=== PATIENT | female | born 2000 | race Caucasian/White ===

== ENCOUNTER 2023-11-29 07:38 | Inpatient (IN) ==
[2023-11-29] MEDS ORDERED: LIDOCAINE 1% LOCAL 20 ML VIAL INFIL PRN (07:55)
[2023-11-29] MEDS: LACTATED RINGER'S 1,000 ML IV PRN (07:56)
[2023-11-29 08:37] LABS: Hematocrit (blood only) 31.1 % (37.0-47.0); Hemoglobin 9.7 g/dl (12.0-16.0); Mean Corpuscular Hemoglobin 22.6 pg (25.0-34.0); Mean Corpuscular Hgb Conc 31.2 g/dL (32.0-36.0); Mean Corpuscular Volume 72.3 fL (80.0-100.0); Mean Platelet Volume 11.1 fL (9.4-12.4); Nucleated RBC # (auto) 0.02 K/uL (0.00-0.12); Nucleated RBC % (auto) 0.2 %; Platelet Count 230 K/uL (130-400); RDW Coefficient of Variation 16.2 % (11.5-14.5); White Blood Count 10.69 K/ul (4.8-10.8)
--- NOTE | 2023-11-29 08:51 | History & Physical Report ---
Date of Service November 29, 2023 Assessment & Plan (1) Encounter for induction of labor: Plan 23 y/o female currently at 40w 3d with an LACY 11/26/23 as determined by LMP, who is here for IOL. Nolasco bulb Pitocin AROM as indicated Epidural prn Monitor heart tracing, category 1 Admission and Anticipated Discharge Date Admission Date: November 29, 2023 History of Present Illness Primary Care Provider: NO PCP 23 y/o female currently at 40w 3d with an LACY 11/26/23 as determined by LMP, who is here for IOL. complicated by: GDM - declines GDM testing at 28 weeks--passed diet test at 16 weeks *Begin monthly Growth US's @24wks Had regular appointments with OB denies Contractions + movement denies Fluid loss denies Vaginal bleeding External FHT and external uterine monitors used: Category 1 tracing OB Labs: Blood Type B Positive 04/16/23 Antibody Screen NEGATIVE 04/16/23 Hemoglobin 11.6 g/dl (12.0-16.0) L 09/03/23 Hematocrit 34.8 % (37.0-47.0) L 09/03/23 Mean Corpuscular Volume 84.6 fL (80.0-100.0) 04/16/23 Platelet Count 251 K/uL (130-400) 04/16/23 Rubella IgG Antibody Immune (Immune) 04/16/23 Rapid Plasma Reagin Nonreactive (Nonreactive) 04/16/23 Hepatitis B Surface Antigen. NON-REACTIVE (NON-REACTIVE) 04/16/23 Hepatitis C Antibody (EIA) NON-REACTIVE (NON-REACTIVE) 04/16/23 HIV (1&2) Ag and Ab Confirmation NON-REACTIVE (NON-REACTIVE) 04/16/23 Maternal Serum Alpha Fetoprotein 50.0 ng/mL 06/25/23 OB Optional Labs: Chlamydia trachomatis RNA Not Detected (NotDetected) 11/02/23 Neisseria gonorrhoeae RNA Not Detected (NotDetected) 11/02/23 Alpha Fetoprotein Triple Screen SEE NOTE 06/25/23 Labs Reviewed: Declines carrier screening--mln cfdna-low risk--mln passed 16 week food 2 hr declined testing at 28weeks. Allergies Allergy/AdvReac Type Severity Reaction Status Date / Time No Known Allergies Allergy Verified 04/10/24 14:24 Home Medications Medication Instructions Recorded Confirmed Type PNV no.[id number] PO 04/09/23 11/28/23 History [ Gummies(zinc chelate)] pyridoxine (vitamin B6) PO 04/09/23 11/28/23 History Patient History Surgical History (Updated 04/09/23 @ 09:59 by Amalia Hull) S/P wisdom tooth extraction Family History (Updated 04/09/23 @ 09:53 by Amalia Hull) Father Myocardial infarction Uncle Colorectal cancer Social History (Updated 04/09/23 @ 09:54 by Amalia Hull) Smoking Status: Never smoker Second Hand Exposure: Yes (Vaping); Do You Dip or Chew Tobacco: No; Hx Alcohol Use: No Hx Substance Use: No Preferred Language: [place]guill[place] Communication Ability: Effective Archivist Political History Required: No Beliefs That Will Affect Care: None marital status: Single marital status details: Gil (22) [phone] Current Living Situation: Significant Other Current Living Situation Comment: Lives with boyfriend and 2 dogs current occupational status: employed current occupation: Daycare Other Information That Helps Us Care for You: No Feels Safe at Home: Yes Safety Concerns: Feels Safe At This Time Assistive Devices: None OB History [employer] History last pap 03/05/[address] [facility] avery Review of Systems denies chest pain or SOB denies fever/chills denies COOLEY/changes in vision denies dysuria denies LE pain Physical Exam Physical Exam: General: Alert and oriented. No acute distress Cardiac: Regular rate and rhythm, no murmurs appreciated Respiratory: Lungs clear to auscultation bilaterally, No increased work of b reathing Abdominal: Soft, non-tender, non-distended. Bowel sounds present. Gravid uterus. Extremities: No lower extremity edema, calves non-tender bilaterally FHT: Category 1, baseline rate 150, moderate variability, infrequent contractions Pelvic: EFW 6-7 per attending Genitourinary: OB Exam Abdomen: + vertex and + estimated weight (6-7 pounds); no regular contractions Manual OB Exam: + cervical dilation (closed), + cervical effacement 50% (soft anterior) and + station -2 OB Exam Monitor Tracing: + external FHT monitor used, + external uterine monitor used, + category I and + normal FHT variability cervical balloon placed under direct visualization. 40 cc of sterile water instilled into the balloon. the catheter was then placed on gentle traction adn secured to her left thigh. patient tolerated procedure well. Results & Data Vital Signs (Past 12 Hours) Vital Signs Temp Pulse Resp BP 11/29/23 07:51 36.9 C 112 H 16 120/81 11/29/23 07:42 112 H 120/81 Resident Activity Tracking Resident Involvement: Resident Care Provided Care Provided: OB Delivery
[2023-11-29] MEDS: OXYTOCIN 30 UNITS/NSS 30 UNITS/500 ML BAG IV PRN ×2 (09:28→23:15)
[2023-11-29] MEDS ORDERED: BUTORPHANOL TARTRATE 2 MG/ML VIAL IV PRN (09:33)
[2023-11-29] MEDS ORDERED: NALOXONE HCL 1 MG in SODIUM CHLORIDE 0.9% 1,000 ML IV PRN (16:33)
[2023-11-29] MEDS ORDERED: ROPIVACAINE 0.5% PF 5 MG/ML 20 ML VIAL EPI PRN (16:33)
[2023-11-29] MEDS ORDERED: ePHEDrine sulfate 50 MG/ML AMP IV PRN (16:33)
[2023-11-29] MEDS ORDERED: ONDANSETRON INJ 2 MG/ML 2 ML VIAL IV PRN (16:33)
[2023-11-29] MEDS ORDERED: LIDOCAINE 2% MPF LOCAL 5 ML VIAL EPI PRN (16:33)
[2023-11-29] MEDS ORDERED: diphenhydrAMINE 50 MG/ML VIAL IV PRN (16:33)
[2023-11-29] MEDS ORDERED: BUPIVACAINE 0.25% PF 30 ML VIAL EPI PRN (16:33)
[2023-11-29] MEDS ORDERED: NALBUPHINE HCL 5 MG in SYRINGE 0 ML IV PRN (16:33)
[2023-11-29] MEDS ORDERED: fentaNYL citrate PF 100 MCG/2 ML VIAL EPI PRN (16:33)
[2023-11-29] MEDS ORDERED: SODIUM CHLORIDE 0.9% PF INJ 10 ML VIAL EPI PRN (16:33)
[2023-11-29] MEDS ORDERED: NALOXONE HCL 0.4 MG/1 ML VIAL/CARP IV PRN (16:33)
--- NOTE | 2023-11-29 16:33 | Anesthesiology Consultation ---
Date of Service November 29, 2023 Assessment & Plan ASA ASA2 Proposed Anesthesia Anesthesia Type: Labor Epidural Risk / Benefits Reviewed With: PT / POA / Parent / Guardian, Accepts Plan and Informed Consent Obtained History Height/Weight Height: 5 ft Weight: 75.296 kg Allergies Allergy/AdvReac Type Severity Reaction Status Date / Time No Known Allergies Allergy Verified 11/28/23 14:24 Medications Home Medications Medication Instructions Recorded Confirmed Last Taken PNV no.[id number] PO 04/09/23 11/28/23 11/27/23 23:00 [ Gummies(zinc chelate)] pyridoxine (vitamin B6) PO 04/09/23 11/28/23 11/28/23 23:00 Active Medications Generic Name Dose Route Start Last Admin Trade Name Freq PRN Reason Stop Dose Admin Oxytocin 30 units in 500 mls @ 20 mls/hr 11/29/23 07:55 11/29/23 14:40 Pitocin 30 Units/Nss IV 12/01/23 07:54 1.2 units/hr .Q24H PRN 20 mls/hr Labor Induction/Augmentation Titration Protocol 1.2 UNITS/HR Lactated Ringer's 1,000 mls @ 125 mls/hr 11/29/23 07:55 11/29/23 15:09 Lr IV 12/01/23 07:54 125 mls/hr .Q8H PRN Administration L&D Protocol Protocol Exercise / Class Metabolic Activity II 4-5 Yardwork/Stairs/Walk up hill Past Family History Family History Father Myocardial infarction Uncle Colorectal cancer Past Surgical History Surgical History S/P wisdom tooth extraction Past Anesthesia History No Hx of Anesthesia Complications and No Family Hx of Anesthesia Complications History of PONV No Hx of PONV and No Hx of Motion Sickness Social History Smoking Status: Never smoker Do You Dip or Chew Tobacco: No Hx Alcohol Use: No Hx Substance Use: No substance use type: does not use Review of Systems denies fever/cough/ colds/ chest pain/ SOB/ TR denies TR Physical Exam Vital Signs Last Vital Signs Temp 36.9 C 11/29/23 07:51 Pulse 103 H 11/29/23 17:03 Resp 16 11/29/23 07:51 BP 115/56 L 11/29/23 17:03 Pulse Ox 99 11/29/23 17:00 ENMT Mouth: no TMJ abnormality and no dentition abnormality Thyromental Distance: > or= 3.5 Finger Breadths Mallampati Class: II Neck neck extension not limited Respiratory normal respiratory effort; no respiratory distress Auscultation: lungs clear to auscultation bilaterally Cardiovascular Rate/Rhythm: regular rate and regular rhythm Neurologic moves all extremities Psychiatric Orientation: alert and oriented x 3 Testing Laboratory Results 11/29/23 08:06
[2023-11-29] MEDS: fentANYL 2 MCG/ML BUPIVacaine 0.125%-NSS 100ML BAG ONE (16:49)
[2023-11-29] MEDS: fentaNYL citrate PF 100 MCG/2 ML VIAL ONE (16:55)
[2023-11-29] MEDS: LIDOCAINE 2%/EPINEPHRINE 1:200,000 20 ML PF ONE (16:56)
[2023-11-29] MEDS: BUPIVACAINE 0.25% PF 30 ML VIAL ONE (16:56)
[2023-11-29] MEDS ORDERED: NURSING L&D Epidural Breakthrough Pain Update ONE (17:15)
[2023-11-29] MEDS: SODIUM CHLORIDE 0.9% PF INJ 10 ML VIAL ONE (17:22)
[2023-11-29] MEDS: ePHEDrine sulfate 50 MG/ML AMP ONE (17:22)
--- NOTE | 2023-11-29 17:46 | Anesthesia Procedure Note ---
Date of Service November 29, 2023 Anesthesia Epidural Re-Dose Vital Signs Temp Pulse Resp BP Pulse Ox 36.9 C 104 H 16 111/61 97 11/29/23 07:51 11/29/23 17:40 11/29/23 07:51 11/29/23 17:33 11/29/23 17:40 Notes Pain Intensity: 5 Dilatation (cm): 5.0 Called by nursing to evaluate epidural as the patient is having increased pain. The epidural was re-dosed with the following medications (all medications via epidural route) after negative aspiration of the epidural catheter for CSF/HEME. 2ml 2% lidocaine with epi, 3mL ropivacaine 0.5% and l via epidural After Epidural Re-Dose Mental Status: alert / awake / arousable Pain: improving with treatment Airway Patency, RR, SpO2: stable & adequate BP & HR: stable & adequate
[2023-11-29] MEDS ORDERED: LIDOCAINE 2%/EPINEPHRINE 1:200,000 20 ML PF ONE (17:49)
[2023-11-29] MEDS ORDERED: ROPIVACAINE 0.5% 5 MG/ML 30 ML VIAL ONE (17:49)
[2023-11-29] MEDS: fentaNYL citrate PF 100 MCG/2 ML VIAL EPI STA (18:43)
--- NOTE | 2023-11-29 19:02 | Communication Note ---
Date of Service: November 29, 2023 pt was numb on right side but not on left. decision made to redo epidural. first epidural removed with tip intact. i identified interspace l3-l4. sterile prep/drape/mask/gloves. 2% lido infiltrated. 17 gauge touey advanced to radha with air at 6cm. easy catheter thread. 4 ml 2% lido with epi test dose. negative IV/IT. catheter secured at 11cm. pt bolused with 4 mL of 0.5% ropivicaine and 100 mcg of fentanyl. pt vss and pain greatly improved.
[2023-11-29] MEDS: LIDOCAINE 2%/EPINEPHRINE 1:200,000 20 ML PF EPI STA (19:33)
[2023-11-29] MEDS: SODIUM CHLORIDE 0.9% PF INJ 10 ML VIAL EPI STA (19:33)
[2023-11-29] MEDS: BUPIVACAINE 0.25% PF 30 ML VIAL EPI STA (19:33)
[2023-11-29] MEDS: fentANYL 2 MCG/ML BUPIVacaine 0.125%-NSS 100ML BAG EPI PRN (22:10)
[2023-11-29] MEDS ORDERED: HYDROCORTISONE ACETATE 25 MG SUPP PR PRN (23:46)
[2023-11-29] MEDS ORDERED: bisacodyL 10 MG SUPP PR PRN (23:46)
[2023-11-29] MEDS ORDERED: ACETAMINOPHEN 325 MG TAB PO PRN (23:46)
[2023-11-29] MEDS ORDERED: OXYTOCIN 30 UNITS/NSS 30 UNITS/500 ML BAG IV PRN (23:46)
[2023-11-29] MEDS ORDERED: oxyCODONE/ACETAMINOPHEN 5mg/325mg TAB PO PRN (23:46)
--- NOTE | 2023-11-29 23:52 | Delivery Summary ---
Vaginal Delivery Summary Date of Service November 29, 2023 Vaginal Delivery Summary and 2nd Degree LAC Patient is a 23-year-old 1 P0 female EDC of 11/26/2023 who presented for induction of labor because of postterm . A cervical balloon and Pitocin induction were begun on the morning of 11/28. After the balloon was expelled, she received epidural analgesia which initially was not effective but after redoing the epidural she had excellent relief. Membranes were ruptured for clear fluid. She progressed to full dilation and pushed effectively over intact perineum for delivery of a viable female infant. After the head was delivered with maternal effort, rest the infant delivered easily. The posterior arm delivered prior to the rest of the body. She was placed on the mother's abdomen for further attention and drying. She was vigorous crying and moving all 4 limbs. After 1 minute, the cord was clamped and cut. After cord blood was obtained, the placenta was expressed intact with a three-vessel cord. Fundal massage and dilute Pitocin were used to control bleeding. A second-degree perineal laceration was repaired with 3-0 chromic in the usual fashion. Her bladder was emptied after delivery using sterile technique for 450 cc of urine. QBL was 737 cc. Mother and infant were doing well after delivery. [facility] Vaginal Delivery Charge Delivery Type Details: and 2nd Degree LAC
[2023-11-30] MEDS: DIPHTHER/TETAN/PERTUS Vaccine (Tdap, Adol/Adult) 0.5mL IM ONE (00:13)
[2023-11-30] MEDS: BENZOCAINE 20% SPRY 85 APPLN/85 GM CAN EXT PRN (02:23)
--- NOTE | 2023-11-30 06:37 | Obstetrical Progress Note ---
Date of Service <Anatoliy Alvarado DO - Last Filed: 11/30/23 07:28> November 30, 2023 Assessment & Plan <Anatoliy Alvarado DO - Last Filed: 11/30/23 07:28> (1) Encounter for assessment: visit type: exam and care immediately after delivery Qualified Code(s): Z39.0 - Encounter for care and examination of mother immediately after delivery Plan 23 y/o PPD#1: Eating well, ambulation improving, monitor for spontaneous urinary output, straight cath prn, consider Nolasco placement if requiring repeated straight cath Vitals reviewed, significant for mild tachycardia, overnight HRmax 120, consistent with blood loss anemia AM Hgb 7.8, pt asymptomatic, will start iron supplementation Pain well controlled without analgesics Routine post care - OOB, ambulation, diet progression as tolerated Will have 6 week follow up with Dr. Ariza <Rupinder Leal MD, FACOG - Last Filed: 11/30/23 08:27> (1) Encounter for assessment: Subjective <Anatoliy Alvarado DO - Last Filed: 11/30/23 07:28> Ambulation: limited ambulation (notes some residual LE numbness) Voiding: voiding difficulty (was only able to void 100mL spontaneously with subsequent straight cath significant for 1400mL) Diet Tolerance:: regular diet Lochia:: Small Feeding Type:: bottle feeding Pain well controlled without analgesics Review of Systems -Denies fever or chills -Denies dyspnea, chest pain, or palpitations -Denies dysuria -Endorses mild COOLEY but denies associated changes in vision Physical Exam <Anatoliy Alvarado DO - Last Filed: 11/30/23 07:28> General: Alert and oriented. No acute distress Cardiac: Regular rate and rhythm, no murmurs appreciated Respiratory: Lungs clear to auscultation bilaterally, No increased work of breathing Abdominal: Soft, non-tender, non-distended. Bowel sounds present. Uterus: Uterine fundus firm, palpable below umbilicus Extremities: No lower extremity edema, calves non-tender bilaterally Results & Data <Anatoliy Alvarado DO - Last Filed: 11/30/23 07:28> Vital Signs (Past 12 Hours) Vital Signs Temp Pulse Pulse Resp BP BP Pulse Ox 11/30/23 03:10 37.1 C 111 H 18 114/61 100 11/30/23 03:10 11/30/23 01:27 115 H 112/73 11/30/23 01:12 108 H 106/59 L 11/30/23 00:57 118 H 112/64 11/30/23 00:55 18 11/30/23 00:42 120 H 121/66 11/30/23 00:27 111 H 111/57 L 11/30/23 00:25 18 11/30/23 00:12 109 H 112/59 L 11/30/23 00:10 18 11/29/23 23:57 113 H 121/62 11/29/23 23:55 113 H 18 121/62 11/29/23 23:42 122 H 120/74 11/29/23 23:40 18 11/29/23 23:28 109 H 107/69 11/29/23 23:25 18 11/29/23 23:16 127 H 183/65 H 11/29/23 23:05 128 H 100 11/29/23 23:00 149 H 98 11/29/23 22:55 146 H 20 98 11/29/23 22:54 138 H 81 L 11/29/23 22:49 142 H 91 11/29/23 22:44 143 H 67 L 11/29/23 22:43 37.4 C 11/29/23 22:42 136 H 86 L 11/29/23 22:39 121 H 83 L 11/29/23 22:37 87 82 L 11/29/23 22:34 85 96 11/29/23 22:30 18 11/29/23 22:30 18 11/29/23 22:29 90 115/58 L 98 11/29/23 22:24 97 11/29/23 22:24 85 11/29/23 22:24 85 88 L 11/29/23 22:19 82 100 11/29/23 22:15 86 106/55 L 11/29/23 22:14 106 H 80 L 11/29/23 22:12 104 H 81 L 11/29/23 22:09 105 H 88 L 11/29/23 22:07 105 H 93 11/29/23 22:04 102 H 100 11/29/23 22:00 103 H 18 114/59 L 11/29/23 21:59 96 H 100 11/29/23 21:55 90 93 11/29/23 21:54 99 H 97 11/29/23 21:50 88 93 11/29/23 21:49 91 H 94 11/29/23 21:45 95 H 111/60 11/29/23 21:44 88 97 11/29/23 21:43 86 93 11/29/23 21:39 94 H 96 11/29/23 21:38 97 H 93 11/29/23 21:34 93 H 98 11/29/23 21:30 89 18 109/58 L 91 11/29/23 21:29 95 H 98 11/29/23 21:24 85 94 11/29/23 21:23 88 93 11/29/23 21:19 83 93 11/29/23 21:17 105 H 90 11/29/23 21:14 94 H 103/58 L 98 11/29/23 21:12 96 H 92 11/29/23 21:09 99 H 99 11/29/23 21:06 102 H 93 11/29/23 21:05 18 11/29/23 21:05 37.5 C 18 11/29/23 21:04 99 H 89 L 11/29/23 21:01 115 H 90 11/29/23 20:59 107 H 97/52 L 100 11/29/23 20:54 108 H 100 11/29/23 20:52 99 H 88 L 11/29/23 20:49 109 H 99 11/29/23 20:46 103 H 101/58 L 11/29/23 20:44 98 H 97 11/29/23 20:39 102 H 100 11/29/23 20:34 103 H 100 11/29/23 20:30 108 H 111/53 L 11/29/23 20:29 109 H 81 L 11/29/23 20:24 97 H 97 11/29/23 20:19 91 H 98 11/29/23 20:15 100 H 112/67 11/29/23 20:14 92 H 99 11/29/23 20:09 95 H 98 11/29/23 20:04 100 H 94 11/29/23 20:00 102 H 121/69 11/29/23 19:59 107 H 96 11/29/23 19:55 96 H 91 11/29/23 19:54 97 H 100 11/29/23 19:49 96 H 99 11/29/23 19:47 113 H 90 11/29/23 19:45 96 H 118/68 11/29/23 19:44 93 H 99 11/29/23 19:39 89 98 11/29/23 19:35 103 H 93 11/29/23 19:34 99 H 98 11/29/23 19:30 110 H 18 120/73 11/29/23 19:29 97 H 100 11/29/23 19:24 37.5 C 18 11/29/23 19:24 11/29/23 19:24 98 H 99 11/29/23 19:20 104 H 90 11/29/23 19:19 86 97 11/29/23 19:15 18 11/29/23 19:15 37.5 C 18 11/29/23 19:14 112 H 100 11/29/23 19:08 112 H 99 11/29/23 19:03 119 H 99 11/29/23 19:00 96 H 123/87 11/29/23 18:58 125 H 99 11/29/23 18:53 125 H 100 11/29/23 18:48 128 H 100 11/29/23 18:43 98 H 100 11/29/23 18:42 118 H 123/69 11/29/23 18:39 109 H 123/83 11/29/23 18:38 122 H 100 O2 Del Method 11/30/23 03:10 Room Air 11/30/23 03:10 Room Air 11/30/23 01:27 11/30/23 01:12 11/30/23 00:57 11/30/23 00:55 11/30/23 00:42 11/30/23 00:27 11/30/23 00:25 11/30/23 00:12 11/30/23 00:10 11/29/23 23:57 11/29/23 23:55 11/29/23 23:42 11/29/23 23:40 11/29/23 23:28 11/29/23 23:25 11/29/23 23:16 11/29/23 23:05 11/29/23 23:00 11/29/23 22:55 11/29/23 22:54 11/29/23 22:49 11/29/23 22:44 11/29/23 22:43 11/29/23 22:42 11/29/23 22:39 11/29/23 22:37 11/29/23 22:34 11/29/23 22:30 11/29/23 22:30 11/29/23 22:29 11/29/23 22:24 11/29/23 22:24 11/29/23 22:24 11/29/23 22:19 11/29/23 22:15 11/29/23 22:14 11/29/23 22:12 11/29/23 22:09 11/29/23 22:07 11/29/23 22:04 11/29/23 22:00 11/29/23 21:59 11/29/23 21:55 11/29/23 21:54 11/29/23 21:50 11/29/23 21:49 11/29/23 21:45 11/29/23 21:44 11/29/23 21:43 11/29/23 21:39 11/29/23 21:38 11/29/23 21:34 11/29/23 21:30 11/29/23 21:29 11/29/23 21:24 11/29/23 21:23 11/29/23 21:19 11/29/23 21:17 11/29/23 21:14 11/29/23 21:12 11/29/23 21:09 11/29/23 21:06 11/29/23 21:05 11/29/23 21:05 11/29/23 21:04 11/29/23 21:01 11/29/23 20:59 11/29/23 20:54 11/29/23 20:52 11/29/23 20:49 11/29/23 20:46 11/29/23 20:44 11/29/23 20:39 11/29/23 20:34 11/29/23 20:30 11/29/23 20:29 11/29/23 20:24 11/29/23 20:19 11/29/23 20:15 11/29/23 20:14 11/29/23 20:09 11/29/23 20:04 11/29/23 20:00 11/29/23 19:59 11/29/23 19:55 11/29/23 19:54 11/29/23 19:49 11/29/23 19:47 11/29/23 19:45 11/29/23 19:44 11/29/23 19:39 11/29/23 19:35 11/29/23 19:34 11/29/23 19:30 11/29/23 19:29 11/29/23 19:24 11/29/23 19:24 Room Air 11/29/23 19:24 11/29/23 19:20 11/29/23 19:19 11/29/23 19:15 11/29/23 19:15 11/29/23 19:14 11/29/23 19:08 11/29/23 19:03 11/29/23 19:00 11/29/23 18:58 11/29/23 18:53 11/29/23 18:48 11/29/23 18:43 11/29/23 18:42 11/29/23 18:39 11/29/23 18:38 Supervising Physician <Rupinder Leal MD, FACOG - Last Filed: 11/30/23 08:27> Co-Signing Physician Notes Resident Physician Supervision Note: I interviewed and examined the patient. Discussed with Dr. Alvarado and agree with findings and plan as documented in the note. Any exceptions or clarifications are listed here: [None] Documented By: Rupinder Leal MD, FACOG Resident Activity Tracking <Anatoliy Alvarado DO - Last Filed: 11/30/23 07:28> Resident Involvement: Resident Care Provided Care Provided: OB Delivery
[2023-11-30 06:45] LABS: Hematocrit (blood only) 24.3 % (37.0-47.0); Hemoglobin 7.8 g/dl (12.0-16.0); Mean Corpuscular Hemoglobin 23.1 pg (25.0-34.0); Mean Corpuscular Hgb Conc 32.1 g/dL (32.0-36.0); Mean Corpuscular Volume 71.9 fL (80.0-100.0); Mean Platelet Volume 11.3 fL (9.4-12.4); Nucleated RBC # (auto) 0.03 K/uL (0.00-0.12); Nucleated RBC % (auto) 0.2 %; Platelet Count 184 K/uL (130-400); RDW Coefficient of Variation 16.4 % (11.5-14.5); RDW Standard Deviation 41.5 fL (36.4-46.3); Red Blood Count 3.38 M/uL (4.20-5.40); White Blood Count 16.21 K/ul (4.8-10.8)
[2023-11-30] MEDS: PRENATAL VITAMIN 1 TAB PO SCH (07:29)
[2023-11-30] MEDS: IBUPROFEN 600 MG TAB PO PRN (07:29)
[2023-11-30] MEDS: DOCUSATE SODIUM 100 MG CAP PO SCH (07:29)
--- NOTE | 2023-11-30 08:49 | Anesthesia Procedure Note ---
Date of Service November 30, 2023 Anesthesia Post Epidural Note Vital Signs Vital Signs: Temp Pulse Resp BP Pulse Ox O2 Del Method 37.2 C 92 H 18 96/61 L 98 Room Air 11/30/23 07:20 11/30/23 07:20 11/30/23 07:20 11/30/23 07:20 11/30/23 07:20 11/30/23 07:20 Pain Intensity Bilateral Abdomen: Pain Intensity: 4 Notes Mental Status: alert / awake / arousable Nausea / Vomiting: adequately controlled Pain: adequately controlled Airway Patency, RR, SpO2: stable & adequate BP & HR: stable & adequate Hydration State: stable & adequate Neuraxial Anesthesia: was administered and sensory block is resolving Anesthetic Complications: no major complications apparent and Pt Satisfied with anesthetic care Epidural: Removed without complications and With tip intact
[2023-11-30] MEDS: FERROUS SULFATE 325 MG TAB PO SCH (09:05)
[2023-11-30] MEDS: bisacodyL 5 MG TABEC PO SCH (20:39)
[2023-12-01 06:40] LABS: Hematocrit (blood only) 26.4 % (37.0-47.0); Hemoglobin 8.1 g/dl (12.0-16.0)
--- NOTE | 2023-12-01 07:14 | Obstetrical Progress Note ---
Date of Service <Anatoliy Alvarado DO - Last Filed: 12/01/23 07:14> December 01, 2023 Assessment & Plan <Anatoliy Alvarado DO - Last Filed: 12/01/23 07:14> (1) Encounter for assessment: visit type: exam and care immediately after delivery Qualified Code(s): Z39.0 - Encounter for care and examination of mother immediately after delivery Plan 23 y/o PPD#2: Eating well, ambulating well, voiding well Vitals reviewed, WNL AM Hgb 8.1, pt asymptomatic, continue iron supplementation upon discharge Pain well controlled with Motrin Routine post care - OOB, ambulation, diet progression as tolerated Will have 6 week follow up with Dr. Ariza <Homa Velasquez MD, FACOG - Last Filed: 12/01/23 08:07> (1) Encounter for assessment: Subjective <Anatoliy Alvarado DO - Last Filed: 12/01/23 07:14> Ambulation: ambulating normally Voiding: no voiding problems Diet Tolerance:: regular diet Lochia:: Small Feeding Type:: bottle feeding Pain well controlled with Motrin Review of Systems -Denies fever or chills -Denies dyspnea, chest pain, or palpitations -Denies dysuria -Denies headache or changes in vision Physical Exam <Anatoliy Alvarado DO - Last Filed: 12/01/23 07:14> General: Alert and oriented. No acute distress Cardiac: Regular rate and rhythm, no murmurs appreciated Respiratory: Lungs clear to auscultation bilaterally, No increased work of breathing Abdominal: Soft, non-tender, non-distended. Bowel sounds present. Uterus: Uterine fundus firm, palpable below umbilicus Extremities: No lower extremity edema, calves non-tender bilaterally Results & Data <Anatoliy Alvarado DO - Last Filed: 12/01/23 07:14> Vital Signs (Past 12 Hours) Vital Signs Temp Pulse Resp BP Pulse Ox O2 Del Method 11/30/23 23:28 36.7 C 89 16 106/64 Room Air 11/30/23 20:28 36.6 C 97 H 16 111/72 98 Room Air Supervising Physician <Homa Velasquez MD, FACOG - Last Filed: 12/01/23 08:07> Co-Signing Physician Notes Resident Physician Supervision Note: I was present with Dr. Alvarado during the history and exam. I discussed the case with the resident and agree with the findings and plan as documented in the note. Any exceptions or clarifications are listed here: Doing well, ready to go home, rhpos, ri, bottle feeding, abd soft ff 2 down nt, ext nt calves. f/u 6 wk pp Documented By: Homa Velasquez MD, FACOG Resident Activity Tracking <Anatoliy Alvarado, DO - Last Filed: 12/01/23 07:14> Resident Involvement: Resident Care Provided Care Provided: OB Delivery
== END 2023-12-01 11:30 | disposition home or self-care (01) | DRG 807 ==
LOC: 4S1 07:38 → 4E2 11-30 03:00